=== PATIENT | male | born 1970 | race Caucasian/White ===

== ENCOUNTER 2017-05-28 13:40 | Emergency (ER) | payer MEDICAID, OTHER ==
[2017-05-28 13:45] VITALS: RESP 16; O2SAT 94
--- NOTE | 2017-05-28 13:59 | EDPHY ---
H & P Time Seen by Provider: 05/28/17 13:55 HPI/ROS: CHIEF COMPLAINT: Hand laceration HISTORY OF PRESENT ILLNESS: 46-year-old male arrives via private vehicle complaining of laceration to the dorsal aspect of his left hand between the 2nd and 3rd metacarpal when he was using a angle facing grinder. No motor deficit. No extensor deficits. No foreign body sensation. PHYSICAL EXAM (Prior to examination, patient consented to physical exam, hands were washed and my usual and customary physical exam procedures followed) 1) GENERAL: Well-developed, well-nourished, alert and oriented. Appears to be in no acute distress. 2) HEAD: Normocephalic 3) HEENT: sclera anicteric 4) LUNGS: Breathing comfortably. 5) SKIN: left hand dorsal aspect detain the 2nd 3rd MCP 3 cm laceration well demarcated, superficial. No joint involvement. 6) MUSCULOSKELETAL: extensor function independently tested remains intact no deficits. No malrotation or shortening. 7) NEUROLOGIC: Full sensation two-point discrimination distally Smoking Status: Current every day smoker Constitutional: Initial Vital Signs Temperature (C) 36.7 C 05/28/17 13:41 Heart Rate 88 05/28/17 13:41 Respiratory Rate 16 05/28/17 13:41 Blood Pressure 125/83 H 05/28/17 13:41 O2 Sat (%) 94 05/28/17 13:41 O2 Delivery Mode Room Air Allergies/Adverse Reactions: No Known Allergies Allergy (Unverified 05/28/17 13:46) Home Medications: Medication Instructions Recorded Cephalexin [Keflex] 500 mg PO TID 5 Days cap 05/28/17 MDM/Departure - [facility] Imaging Results: Imaging Impressions Hand X-Ray 05/28/17 14:06 Impression: 1. No acute osseous abnormality seen about the left hand. 2. Mild soft tissue irregularity between the second and third metacarpals related to recent laceration. 3. Focal defect involving the distal tuft of the left second distal phalanx probably related to remote trauma. Images reviewed myself Procedures: Procedure: Laceration repair. I explained the indications, risks and benefits for both laceration repair and anesthetic administration. Verbal consent was obtained from the patient . The laceration on the left hand was anesthetized using 0.5% bupivicaine without epinephrine . After anesthetic administered the patient was observed for a period of time and had no apparent adverse effects. The wound was cleaned, prepped, draped in normal sterile fashion and explored to its base. No foreign body seen, no foreign bodies palpated. There were no deep structures involved. No tendon injury was identified. The wound was repaired with 8 simple interrupted 5 O Ethilon sutures. The wound repair was complex. The procedure was performed by myself. Patient has been informed that scarring will occur, although efforts have been made to minimize this. Procedure: Splint And aluminum finger splint was applied by ER slot technician. After application of the splint I returned and re-examined the patient. The splint was adequately immobilizing the joint and distal to the splint the patient's circulation and sensation were intact. Patient shows no signs of compartment syndrome. Was given orthopedic precautions. Medications Given: Discontinued Medications Cephalexin HCl (Keflex) 500 mg PO EDNOW ONE PRN Reason: Protocol Stop: 05/28/17 14:07 Last Admin: 05/28/17 14:18 Dose: 500 mg ED Course/Re-evaluation: Re-evaluation with serial exams. Doubt traumatic arthrotomy . He will be started on prophylactic antibiotics, return to the ER in 10 days for suture removal.Care of patient under supervision of secondary supervising physician Dr hernandez . - Depart Disposition: Home, Routine, Self-Care Clinical Impression: Laceration of left hand Qualifiers: Encounter type: initial encounter Foreign body presence: without foreign body Qualified Code(s): S61.412A - Laceration without foreign body of left hand, initial encounter Condition: Good Instructions: Care For Your Stitches (ED), Laceration (ED) Additional Instructions: Return to the ER if you develop redness, swelling, discharge, warmth to the wound, red streaks going up your arm , or any other symptoms that concern you. Prescriptions: Cephalexin [Keflex] 500 mg PO TID 5 Days cap Referrals: Return, to the ER in 10 days for suture removal [Other] - As per Instructions
[2017-05-28] MEDS ORDERED: CEPHALEXIN 500 MG CAP PO ONE (14:06)
[2017-05-28 15:49] VITALS: BP 128/79; PULSE 75; TEMP 98.6
== END 2017-05-28 15:48 | disposition home or self-care (01) ==
PROC: 0HQGXZZ Repair Left Hand Skin, External Approach (ICD-10-PCS; principal; 2017-05-28)
DX: S61.412A Laceration without foreign body of left hand, initial encounter (principal); F17.200 Nicotine dependence, unspecified, uncomplicated; W31.1XXA Contact with metalworking machines, initial encounter

== ENCOUNTER 2017-07-03 18:37 | Emergency (ER) | payer MEDICAID ==
[2017-07-03 18:55] VITALS: BP 113/72; PULSE 78; RESP 18; TEMP 98.6; O2SAT 95
[2017-07-03] MEDS ORDERED: CEPHALEXIN 500 MG CAP PO ONE (19:23)
--- NOTE | 2017-07-03 19:23 | EDPHY ---
H & P Stated Complaint: Had sutures L hand ~1 mo ago; wants area checked because it's draining Time Seen by Provider: 07/03/17 19:15 HPI/ROS: CHIEF COMPLAINT: Wound dehiscence HISTORY OF PRESENT ILLNESS: Patient is a 39-year-old man who comes to the emergency department complaining of a wound that will not heal on his left hand. He was seen here over a month ago after he cut it. He had it repaired with sutures. It did well in sutures removed however a few days later he was working and accidentally tore the wound open again. Since that time has not healed. It is now slightly erythematous and has some straw-colored drainage. No fever. No pain with range of motion. REVIEW OF SYSTEMS: Constitutional: denies: chills, fever, recent illness, recent injury EENTM: denies: blurred vision, double vision, nose congestion Respiratory: denies: cough, shortness of breath Cardiac: denies: chest pain, irregular heart rate, lightheadedness, palpitations Gastrointestinal/Abdominal: denies: abdominal pain, diarrhea, nausea, vomiting, blood streaked stools Genitourinary: denies: dysuria, frequency, hematuria, pain Musculoskeletal: denies: joint pain, muscle pain Skin: See HPI Neurological: denies: headache, numbness, paresthesia, tingling, dizziness, weakness Hematologic/Lymphatic: denies: blood clots, easy bleeding, easy bruising Immunologic/allergic: denies: HIV/AIDS, transplant EXAM: GENERAL: Well-appearing, well-nourished and in no acute distress. HEAD: Atraumatic, normocephalic. EYES: Pupils equal round and reactive to light, extraocular movements intact, sclera anicteric, conjunctiva are normal. ENT: TMs normal, nares patent, oropharynx clear without exudates. Moist mucous membranes. NECK: Normal range of motion, supple without lymphadenopathy or JVD. LUNGS: Breath sounds clear to auscultation bilaterally and equal. No wheezes rales or rhonchi. HEART: Regular rate and rhythm without murmurs, rubs or gallops. ABDOMEN: Soft, nontender, normoactive bowel sounds. No guarding, no rebound. No masses appreciated. BACK: No CVA tenderness, no spinal tenderness, step-offs or deformities EXTREMITIES: Normal range of motion, no pitting or edema. No clubbing or cyanosis. NEUROLOGICAL: Cranial nerves II through XII grossly intact. Normal speech, normal gait. 5/5 strength, normal movement in all extremities, normal sensation PSYCH: Normal mood, normal affect. SKIN: 2.5 cm dehisced wound to the left dorsal hand. Mild erythema surrounding. Minimal straw-colored fluid. Source: Patient, Family - Personal History Current Tetanus Diphtheria and Acellular Pertussis (TDAP): Yes - Medical/Surgical History Hx Asthma: No Hx Chronic Respiratory Disease: No Hx Diabetes: No Hx Cardiac Disease: No Hx Renal Disease: No Hx Cirrhosis: No Hx Alcoholism: No Other PMH: fx pelvis - Family History Significant Family History: No pertinent family hx - Social History Smoking Status: Current every day smoker Alcohol Use: Sober Drug Use: None Constitutional: Initial Vital Signs Temperature (C) 37 C 07/03/17 18:40 Heart Rate 78 07/03/17 18:40 Respiratory Rate 18 07/03/17 18:40 Blood Pressure 113/72 07/03/17 18:40 O2 Sat (%) 95 07/03/17 18:40 O2 Delivery Mode Room Air Allergies/Adverse Reactions: No Known Allergies Allergy (Verified 07/03/17 18:52) Home Medications: Medication Instructions Recorded Cephalexin [Keflex] 500 mg PO TID #21 cap 07/03/17 Medical Decision Making ED Course/Re-evaluation: The patient has a small wound on his hand that is dehisced and appears slightly infected. I will start him on Keflex. It is not advised to close at this time. We will see of antibiotics help and we discussed Plastic surgery for revision if this is not satisfactory. Patient and family understand and agree with this plan. They declined further workup or testing at this time. Differential Diagnosis: Partial list of the Differential diagnosis considered include but were not limited to; wound dehiscence, wound infection, and although unlikely based on the history and physical exam, I also considered osteomyelitis, cellulitis, vascular injury, tendon injury. I discussed these differential diagnoses and the plan with the patient as well as the usual and expected course. The patient understands that the diagnosis is provisional and that in medicine we are not always correct and that further workup is often warranted. Usual and customary warnings were given. All of the patient's questions were answered. The patient was instructed to return to the emergency department should the symptoms at all worsen or return, otherwise to followup with the physician as we discussed. - Data Points Medications Given: Discontinued Medications Cephalexin HCl (Keflex) 500 mg PO EDNOW ONE PRN Reason: Protocol Stop: 07/03/17 19:24 Last Admin: 07/03/17 19:30 Dose: 500 mg Departure - Departure Disposition: Home, Routine, Self-Care Clinical Impression: Laceration, Wound infection Condition: Fair Instructions: Wound Infection (ED) Referrals: ERIKA NICHOLE [Other] - As per Instructions Prescriptions: Cephalexin [Keflex] 500 mg PO TID #21 cap
== END 2017-07-03 19:34 | disposition home or self-care (01) ==
DX: T81.33XA Disruption of traumatic injury wound repair, initial encounter (principal); F17.200 Nicotine dependence, unspecified, uncomplicated; Y82.8 Other medical devices associated with adverse incidents

== ENCOUNTER 2017-10-24 09:56 | Emergency (ER) | payer MEDICAID ==
--- NOTE | 2017-10-24 11:04 | EDPHY ---
H & P Smoking Status: Current every day smoker Time Seen by Provider: 10/24/17 10:55 HPI/ROS: CHIEF COMPLAINT: UTI HISTORY OF PRESENT ILLNESS: 47-year-old male presents to the emergency department with concerns about urinary tract infection. The patient has a history of typically 2 or 3 urinary tract infections per year. He has a history an open pelvis fracture when he was age 20 and since that time has been doing self-catheterizations. He noted that his urine was more cloudy specially over last 2 days. He thinks 2 months ago that he had thought he had a urinary tract infection and this was treated with a home remedy. He saw his primary care provider who said that he did not have a urinary tract infection at that time. No back pain. No fevers or chills. No nausea or vomiting. No abdominal pain. REVIEW OF SYSTEMS: Constitutional: No fever, no chills. Eyes: No double or blurry vision. ENT: No sore throat. Respiratory: No cough, no shortness of breath. Cardiac: No chest pain. Gastrointestinal: No abdominal pain, vomiting or diarrhea. Genitourinary: Self caths. No dysuria. Musculoskeletal: No neck or back pain. Skin: No rashes. Neurological: No headache. (Andreia Gupta) Past Medical/Surgical History: Open pelvis fracture age 20 (Andreia Gupta) Social History: from [place] (Andreia Gupta) Physical Exam: General Appearance: Alert, no distress. Afebrile. Eyes: Pupils equal and round. Extraocular motions are all intact. ENT: Mouth: Mucous membranes moist. Respiratory: No wheezing, rhonchi, or rales, lungs are clear to auscultation. Cardiovascular: Regular rate and rhythm. Gastrointestinal: Abdomen is soft and nontender, no masses, no rebound or guarding, bowel sounds normal. No CVA tenderness bilaterally. Neurological: Alert and oriented x 3, cranial nerves II through XII grossly intact Skin: Warm and dry, no rashes. Musculoskeletal: Nontender to palpate along the cervical, thoracic or lumbar spine. Neck is supple. Extremities: Full range of motion and no peripheral edema. Psychiatric: Patient is oriented X 3, there is no agitation. (Andreia Gupta) Constitutional: Initial Vital Signs Temperature (C) 36.8 C 10/24/17 10:07 Heart Rate 76 10/24/17 10:07 Respiratory Rate 18 10/24/17 10:07 Blood Pressure 106/67 10/24/17 10:07 O2 Sat (%) 93 10/24/17 10:07 O2 Delivery Mode Room Air Allergies/Adverse Reactions: No Known Allergies Allergy (Verified 10/24/17 10:07) Home Medications: Medication Instructions Recorded Cephalexin [Keflex] 500 mg PO QID #28 cap 10/24/17 Medical Decision Making ED Course/Re-evaluation: 39-year-old male presents to the emergency department with known history of urinary tract infections. He performs self catheterization from pelvis fracture at age 20. The urinalysis reveals 50-200 red blood cells and white blood cells. Urine cultures pending. Patient states he typically treat infections with Keflex. I do not think IV antibiotics are indicated. No vomiting. No fevers. No abdominal pain or back pain. (Andreia Gupta) I did not see this patient while he was in the emergency department. However his care was discussed with the PA while the patient was in the department. I agree with treatment plan and management (Pieter Panda) Differential Diagnosis: Including but not limited to urinary tract infection, pyelonephritis, kidney stone (Andreia Gupta) Departure - Departure Disposition: Home, Routine, Self-Care Clinical Impression: Urinary tract infection Condition: Good Instructions: Urinary Tract Infection in Men (ED) Additional Instructions: Keflex 500 mg 4 times daily for 1 week. Call [phone] for the results of your urine culture in 48 hr. Return to the emergency department if he developed abdominal pain, back pain, fevers, vomiting, or if you feel worse in any way. Referrals: ERIKA NICHOLE [Other] - As per Instructions Prescriptions: Cephalexin [Keflex] 500 mg PO QID #28 cap
[2017-10-24 11:33] VITALS: BP 110/68
== END 2017-10-24 11:32 | disposition home or self-care (01) ==
DX: N39.0 Urinary tract infection, site not specified (principal); B96.20 Unspecified Escherichia coli [E. coli] as the cause of diseases classified elsewhere; F17.200 Nicotine dependence, unspecified, uncomplicated

== ENCOUNTER 2017-11-17 08:57 | Emergency (ER) | payer MEDICAID, OTHER ==
[2017-11-17 09:02] VITALS: BP 127/69
--- NOTE | 2017-11-17 09:16 | EDPHY ---
H & P Time Seen by Provider: 11/17/17 09:05 HPI/ROS: CHIEF COMPLAINT: "I think I have a UTI again" HISTORY OF PRESENT ILLNESS: 47-year-old male history of chronic self catheterization secondary to neurogenic bladder secondary to pelvis fracture at age 20, history of recurrent UTI, seen the ER approximately 1 month ago for same complaints treated with Keflex which he states resolved his symptoms, returns to the ER stating after the past 4 days he has been experiencing suprapubic discomfort and dysuria similar to his is recurrent UTI. He denies: Genitalia pain, testicle pain, back or flank pain, fever chills, flu-like symptoms, nausea or vomiting, abdominal pain, genital trauma. REVIEW OF SYSTEMS: A ten point review of systems was performed and is negative with the exception of the items mentioned in the HPI PAST MEDICAL & SURGICAL HISTORY: Recurrent UTI. 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 Appears to be in no acute distress. He is drawing re-enter the room. He appears well 2) HEAD: Normocephalic, atraumatic 3) HEENT: Pupils equal, round, reactive to light bilaterally. Sclera anicteric. 4) NECK: Full range of motion, no meningeal signs. 5) LUNGS: Clear auscultation bilaterally, no wheezes, no rhonchi, no retractions. 6) HEART: Regular rate and rhythm, no murmur, no heave, no gallop. 7) ABDOMEN: No guarding, no rebound, no focal tenderness, negative McBurney's, negative Lara's, negative Rovsing's, negative peritoneal sign, 8) MUSCULOSKELETAL: Moving all extremities, no focal areas of tenderness, no obvious trauma. No peripheral edema or discoloration. 9) BACK: No CVA tenderness, no midline vertebral tenderness, no fluctuance, no step-off, no obvious trauma, no visual or palpable abnormality. 10) SKIN: No rash, no petechiae. 11) : Circumcised normal male external genitalia no signs of trauma no irritation no signs of infection DIFFERENTIAL DIAGNOSIS: In no particular order including but not limited to cystitis, pyelonephritis, urosepsis Smoking Status: Current every day smoker Constitutional: Initial Vital Signs Temperature (C) 36.4 C 11/17/17 09:01 Heart Rate 80 11/17/17 09:01 Respiratory Rate 16 11/17/17 09:01 Blood Pressure 127/69 H 11/17/17 09:01 O2 Sat (%) 97 11/17/17 09:01 O2 Delivery Mode Room Air Allergies/Adverse Reactions: No Known Allergies Allergy (Verified 11/17/17 09:00) Home Medications: Medication Instructions Recorded Cephalexin [Keflex] 500 mg PO TID 7 Days cap 11/17/17 Phenazopyridine HCl [Pyridium] 200 mg PO PC #10 tab 11/17/17 MDM/Departure - [facility] ED Course/Re-evaluation: I reviewed the patient's old medical records. I reviewed his urine culture of which is positive for E coli, pansensitive. At this time doubt urosepsis, doubt pyelonephritis. I do not think that hospitalization or IV antibiotics are indicated. I think he can be treated on outpatient basis with oral Keflex. Usual customary discharge precautions instructions provided. He feels comfortable being discharged. Care of patient under supervision of secondary supervising physician Dr Gonzalez. - Depart Disposition: Home, Routine, Self-Care Clinical Impression: Self-catheterizes urinary bladder, History of neurogenic bladder Urinary tract infection Qualifiers: Urinary tract infection type: acute cystitis Hematuria presence: with hematuria Qualified Code(s): N30.01 - Acute cystitis with hematuria Condition: Good Instructions: Urinary Tract Infection in Men (ED) Additional Instructions: Return to the ER immediately if you experience fevers/chills, flu like symptoms , inability to tolerate oral intake, nausea or vomiting, or any other symptoms that concern you. Prescriptions: Cephalexin [Keflex] 500 mg PO TID 7 Days cap Phenazopyridine HCl [Pyridium] 200 mg PO PC #10 tab Referrals: ERIKA NICHOLE [Other] - 2-3 days, call for appt.
== END 2017-11-17 09:25 | disposition home or self-care (01) ==
DX: N30.01 Acute cystitis with hematuria (principal); B96.20 Unspecified Escherichia coli [E. coli] as the cause of diseases classified elsewhere; F17.200 Nicotine dependence, unspecified, uncomplicated; Z87.448 Personal history of other diseases of urinary system